=== PATIENT | female | born 1985 | race Caucasian/White ===

== ENCOUNTER 2017-01-03 11:32 | Emergency (ER) | payer SELFPAY ==
[2017-01-03 12:05] VITALS: BP 114/70
--- NOTE | 2017-01-03 12:53 | UC ---
Throat Pain/Nasal Ha HPI - HPI Summary HPI Summary: complaint of left ear feeling plugged or has fluid in it started to bother her for approx 3 days can't hear well out of left ear nasal congestion for over 10 days sinus pressure and is increasing in her face denies fever and chills denies ear pain has a rash on her skin but she is making an appointment with dermatology - History of Current Complaint Chief Complaint: UCEar Stated Complaint: CLOGGED EAR Time Seen by Provider: 01/03/17 12:45 Hx Obtained From: Patient Hx Last Menstrual Period: 12/12/16 - Allergies/Home Medications Allergies/Adverse Reactions: Allergies Allergy/AdvReac Type Severity Reaction Status Date / Time Latex Allergy Unknown Rash Verified 08/05/16 10:36 Benzoyl Peroxide Allergy Itching Verified 08/05/16 10:36 PMH/Surg Hx/FS Hx/Imm Hx Previously Healthy: Yes Endocrine History Of: Denies: Diabetes, Thyroid Disease Cardiovascular History Of: Reports: Cardiac Disorders - benign murmur Denies: Hypertension Respiratory History Of: Reports: Bronchitis Denies: COPD, Asthma GI/ History Of: Denies: Ulcer Psychological History Of: Reports: Anxiety, Depression - Surgical History Surgical History: Yes Surgery Procedure, Year, and Place: ; wisdom teeth; hx abnormal pap smears - Family History Known Family History: Positive: Hypertension Negative: Cardiac Disease, Diabetes - Social History Occupation: Employed Full-time Lives: With Family Alcohol Use: None Substance Use Type: None Substance Use Comment - Amount & Last Used: states quit 3 weeks ago Smoking Status (MU): Former Smoker Type: Cigarettes Have You Smoked in the Last Year: No When Did the Patient Quit Smoking/Using Tobacco: Oct 2014 - Immunization History Most Recent Influenza Vaccination: Not the Season Most Recent Tetanus Shot: 03/21/16 Most Recent Pneumonia Vaccination: n/a Review of Systems Constitutional: Negative Skin: Negative Eyes: Negative ENT: Nasal Discharge Respiratory: Cough Cardiovascular: Negative Gastrointestinal: Negative Genitourinary: Negative Motor: Negative Neurovascular: Negative Musculoskeletal: Negative Neurological: Negative Psychological: Negative All Other Systems Reviewed And Are Negative: Yes Physical Exam Triage Information Reviewed: Yes Appearance: No Pain Distress, Well-Nourished Vital Signs: Initial Vital Signs Temp 97.7 F 01/03/17 11:56 Pulse 72 01/03/17 11:56 Resp 18 01/03/17 11:56 BP 114/70 01/03/17 11:56 Pulse Ox 99 01/03/17 11:56 Vital Signs Reviewed: Yes Eyes: Positive: Conjunctiva Clear ENT: Positive: Nasal congestion, Nasal drainage, TMs normal - right, Other: - unable to visulaize TM d/t cerumen impaction maxillary sinus tenderness Neck: Positive: No Lymphadenopathy Respiratory: Positive: Lungs clear, Normal breath sounds, No respiratory distress, No accessory muscle use Cardiovascular: Positive: RRR, No Murmur Musculoskeletal Exam: Normal Neurological Exam: Normal Psychological Exam: Normal Skin Exam: Normal Throat Pain/Nasal Course/Dx - Differential Dx/Diagnosis Differential Diagnosis/HQI/PQRI: Sinusitis, URI, Other - cerumen impaction Provider Diagnoses: left ear cerumen impaction. sinusitis Discharge - Discharge Plan Condition: Stable Disposition: HOME Patient Education Materials: Cerumen Impaction (ED), Sinusitis (ED) Referrals: No Primary Care Phys,NOPCP [Primary Care Provider] - [facility] [place] [facility] [Outside] Additional Instructions: SINUSITIS What is Sinusitis? Sinusitis is inflammation or infection of the lining of the sinuses behind the bones in your cheeks or forehead. Sinusitis may occur following a common cold, flu, or other infection; allergies; a tooth infection that spreads to the sinuses; swimming in contaminated water; pressure changes in airplanes at high altitudes; violent sneezing or nose blowing or smoking or breathing other peoples smoke. Symptoms Might Include: Nasal Congestion Sneezing Watery eyes, eye irritation, or eye itching Headaches Pressure in the cheeks Wheezing Trouble smelling Sore throat and coughing may occur Treatment Recommendations: Take medicines as prescribed until completely gone. Drink plenty of fluids. Use saline nose spray to thin the mucous and help the sinuses drain. Use a vaporizer or humidifier. Apply warm compresses to the face or forehead several times a day for 10 to 20 minutes. Call Your Doctor or Return Here IF: Your pain increases during treatment. You develop a high temperature. You develop unusual swelling around the eyes. You have difficulty with your vision. You develop a severe headache, earache, or toothache. You develop increased fever or fever that does not respond to medication such as Tylenol?. You have difficulty breathing or catching your breath. You begin to have any other new symptoms that worry you.
== END 2017-01-03 13:21 | disposition home or self-care (01) ==
LOC: UCEAST 11:32
DX: H61.22 Impacted cerumen, left ear (principal); J32.9 Chronic sinusitis, unspecified; R01.0 Benign and innocent cardiac murmurs; F41.9 Anxiety disorder, unspecified; F32.9 Major depressive disorder, single episode, unspecified; Z91.040 Latex allergy status; Z87.09 Personal history of other diseases of the respiratory system; Z87.891 Personal history of nicotine dependence
CPT/HCPCS: 99213; G0463

== ENCOUNTER 2017-07-25 21:18 | Emergency (ER) | payer OTHER ==
[2017-07-25 21:27] VITALS: BP 112/63
--- NOTE | 2017-07-25 21:48 | UC ---
Respiratory Complaint HPI - HPI Summary HPI Summary: 32 year old female presents with complains of cough, fever, chill and sore throat. - History of Current Complaint Chief Complaint: UCSkin Stated Complaint: COUGH,COLD,RASH Time Seen by Provider: 07/25/17 21:43 Hx Obtained From: Patient Hx Last Menstrual Period: 1 WEEK AGO Onset/Duration: Sudden Onset Severity Initially: Moderate Severity Currently: Moderate Pain Scale Used: 0-10 Numeric - 5 Character: Cough: Nonproductive Associated Signs And Symptoms: Positive: Wheezing - Allergies/Home Medications Allergies/Adverse Reactions: Allergies Allergy/AdvReac Type Severity Reaction Status Date / Time Latex Allergy Unknown Rash Verified 07/25/17 21:27 Benzoyl Peroxide Allergy Itching Verified 07/25/17 21:27 Home Medications: Home Medications Cetirizine* [ZyrTEC 10 MG TAB*] 10 mg PO ONCE PRN 07/25/17 [History Confirmed ] Hydrocortisone 1% CREAM* [Hytone Cream 1%*] 1 applic TOPICAL PRN 07/25/17 [ History] Phenylephrine-Chlorpheniramine [Sara-[place] Plus Cold & 5-2-10-325 mg] 1 cap PO PRN 07/25/17 [History] PMH/Surg Hx/FS Hx/Imm Hx Previously Healthy: Yes - Surgical History Surgical History: Yes Surgery Procedure, Year, and Place: ; wisdom teeth; hx abnormal pap smears - Family History Known Family History: Positive: Hypertension Negative: Cardiac Disease, Diabetes - Social History Alcohol Use: None Substance Use Type: None Substance Use Comment - Amount & Last Used: states quit 3 weeks ago Smoking Status (MU): Former Smoker Type: Cigarettes Have You Smoked in the Last Year: No When Did the Patient Quit Smoking/Using Tobacco: Oct 2014 - Immunization History Most Recent Influenza Vaccination: Not the 2015/2015 Season Most Recent Tetanus Shot: 03/21/16 Most Recent Pneumonia Vaccination: n/a Review of Systems Constitutional: Negative Skin: Negative Eyes: Negative ENT: Sore Throat, Ear Ache, Nasal Discharge, Sinus Congestion, Sinus Pain/ Tenderness Respiratory: Shortness Of Breath, Cough Cardiovascular: Negative Gastrointestinal: Negative Genitourinary: Negative Motor: Negative Neurovascular: Negative Musculoskeletal: Negative Neurological: Negative Psychological: Negative All Other Systems Reviewed And Are Negative: Yes Physical Exam Triage Information Reviewed: Yes Appearance: Well-Appearing Vital Signs: Initial Vital Signs Temp 36.6 C 07/25/17 21:22 Pulse 85 07/25/17 21:22 Resp 16 07/25/17 21:22 BP 112/63 07/25/17 21:22 Pulse Ox 97 07/25/17 21:22 Eye Exam: Normal ENT: Positive: Pharyngeal erythema, Nasal congestion, Nasal drainage Dental Exam: Normal Neck exam: Normal Neck: Positive: 1 Respiratory Exam: Normal Cardiovascular Exam: Normal Abdominal Exam: Normal Musculoskeletal Exam: Normal Neurological Exam: Normal Psychological Exam: Normal Skin Exam: Normal UC Diagnostic Evaluation - Laboratory O2 Sat by Pulse Oximetry: 97 Respiratory Course/Dx - Differential Dx/Diagnosis Provider Diagnoses: cough. chest congestion. cough sore throat Discharge - Discharge Plan Condition: Stable Disposition: HOME Prescriptions: Albuterol HFA INHALER* [Ventolin HFA Inhaler*] 1 puff INH Q6H PRN #1 mdi PRN Reason: Wheezing Fluticasone NASAL * [Flonase *] 2 spray BOTH NARES DAILY #1 spray LoraTADine TAB(NF) [Claritin 10 MG TAB(NF)] 10 mg PO DAILY #30 tab Methylprednisolone [Medrol Dosepak 4 MG*] 4 mg PO .SEE MAYTE INSTRUCTION #21 tab Promethazine-Dm [Promethazine/Dextromethor 6.25-15 mg/5Ml] 1 teasp PO Q6H PRN # 120 ml PRN Reason: Cough Triamcinolone 0.1% CREAM (NF) [Kenalog 0.1% Cream (NF)] 1 applic TOPICAL TID PRN #90 gm PRN Reason: Itching Patient Education Materials: Allergic Rhinitis (ED) Referrals: No Primary Care Phys,NOPCP [Primary Care Provider] -
[2017-07-25] MEDS ORDERED: predniSONE TAB* 20 MG PO ONE (21:52)
[2017-07-25] MEDS ORDERED: Hydrocortisone 1% CREAM* 30 GM TUBE TOPICAL ONE (21:53)
[2017-07-25] MEDS ORDERED: hydrOXYzine HCL TAB* 25 MG PO ONE (21:54)
== END 2017-07-25 22:23 | disposition home or self-care (01) ==
LOC: UCEAST 21:18
DX: J02.9 Acute pharyngitis, unspecified (principal); Z87.891 Personal history of nicotine dependence; R05 Cough; R09.89 Other specified symptoms and signs involving the circulatory and respiratory systems
CPT/HCPCS: 99212; A9270-GY; G0463; J7512

== ENCOUNTER 2017-09-18 18:51 | Emergency (ER) | payer OTHER ==
[2017-09-18 19:09] VITALS: BP 127/85
[2017-09-18] MEDS ORDERED: Aspirin Low Dose CHEW TAB* 81 MG PO ONE (19:24)
--- NOTE | 2017-09-18 19:33 | UC ---
Terry Canales Gabriel, scribed for Jordon Macedo MD on 09/18/17 at 1923 . Cardiac HPI - HPI Summary HPI Summary: This patient is a 32 year old F presenting to [facility] [place] [facility] accompanied by family with a chief complaint of CP since 2 hours ago. The patient rates the pain 8/10 in severity and radiating into her left breast and left upper arm. Patient reports pleuritic pain. Patient denies cough, fever, chills, trauma, and LE edema or pain. Pt reports that the pain began while she was swimming. She says she gets chest cramps occasionally that feel similar to this but it never radiates down her arm. The pain hasnt resolved and is still currently present. - History of Current Complaint Chief Complaint: UCChestPain Stated Complaint: CHEST PAIN Time Seen by Provider: 09/18/17 19:06 Hx Obtained From: Patient Hx Last Menstrual Period: <1 WEEK Onset/Duration: Sudden Onset, Lasting Hours, Still Present Initial Severity: Moderate Current Severity: Moderate Pain Intensity: 8 Associated Signs & Symptoms: Positive: Negative - cough, fever, chills, trauma, and LE edema or pain - Allergy/Home Medications Allergies/Adverse Reactions: Allergies Allergy/AdvReac Type Severity Reaction Status Date / Time Latex Allergy Unknown Rash Verified 09/18/17 19:00 Benzoyl Peroxide Allergy Itching Verified 09/18/17 19:00 PMH/Surg Hx/FS Hx/Imm Hx Previously Healthy: No Respiratory History: Other Other Respiratory History: murmur - Surgical History Surgical History: Yes Surgery Procedure, Year, and Place: X2; wisdom teeth; hx abnormal pap smears - Family History Known Family History: Positive: Hypertension Negative: Cardiac Disease, Diabetes - Social History Occupation: Employed Full-time Lives: With Family Alcohol Use: None Substance Use Type: None Substance Use Comment - Amount & Last Used: states quit 3 weeks ago Smoking Status (MU): Former Smoker Type: Cigarettes Have You Smoked in the Last Year: No When Did the Patient Quit Smoking/Using Tobacco: Oct 2014 - Immunization History Most Recent Influenza Vaccination: Not the 2014/2015 Season Most Recent Tetanus Shot: 03/21/16 Most Recent Pneumonia Vaccination: n/a Review of Systems Respiratory: Other - pleuritic pain Cardiovascular: Chest Pain All Other Systems Reviewed And Are Negative: Yes Physical Exam Triage Information Reviewed: Yes Appearance: Well-Appearing, No Pain Distress Vital Signs: Initial Vital Signs Temp 97.3 F 09/18/17 18:53 Pulse 81 09/18/17 18:53 Resp 16 09/18/17 18:53 BP 127/85 09/18/17 18:53 Pulse Ox 99 09/18/17 18:53 Vital Signs Reviewed: Yes Neck: Positive: Nontender Respiratory: Positive: Lungs clear, Normal breath sounds, No respiratory distress Cardiovascular: Positive: RRR, No Murmur Abdomen Description: Positive: Nontender Musculoskeletal: Positive: No Edema, Other: - some reproduction of pain on ROM of the right arm, but minimal. Neurological: Positive: Alert, Muscle Tone Normal Skin Exam: Normal - Assessment/Plan Course Of Treatment: 32 yr old with chest pain, and left arm pain. Plan is to transfer to ER for further chest pain evaluation. She refuses ALS transport for her CP and signed out AMA with risk of delay in care, diagnosis, , disability. - Clinical Impression Provider Diagnoses: chest pain Discharge - Discharge Plan Condition: Good Disposition: AGAINST MEDICAL ADVICE Referrals: No Primary Care Phys,NOPCP [Primary Care Provider] - The documentation as recorded by the Terry hurd Gabriel accurately reflects the service I personally performed and the decisions made by , Jordon Macedo MD.
--- NOTE | 2017-09-18 19:49 | UC ---
ITerry Gabriel, scribed for Jordon Macedo MD on 09/18/17 at 1947 . Progress - Progress Note Progress Note: The follow is the patient's EKG results done at upon arrival. - EKG/XRAY/CT EKG: NSR - at 60 BPM Comments: no stemi, normal MN, QRS, QT The documentation as recorded by the scribeTerry Gabriel accurately reflects the service I personally performed and the decisions made by me, Jordon Macedo MD.
== END 2017-09-18 19:42 | disposition left against medical advice (07) ==
LOC: UCEAST 18:51
DX: R07.9 Chest pain, unspecified (principal); Z88.8 Allergy status to other drugs, medicaments and biological substances; Z87.891 Personal history of nicotine dependence; R01.1 Cardiac murmur, unspecified
CPT/HCPCS: 93005; 99212; A9270-GY; G0463

== ENCOUNTER 2017-09-28 09:16 | Emergency (ER) | payer MEDICAID, OTHER ==
[2017-09-28 10:36] VITALS: BP 119/63
--- NOTE | 2017-09-28 11:11 | UC ---
Respiratory Complaint HPI - HPI Summary HPI Summary: 32 yo female with 2 week hx of productive cough and wheeze sinus pressure and pain no fever/chills hx of bronchitis - History of Current Complaint Chief Complaint: UCRespiratory Stated Complaint: COUGH CONGESTION Time Seen by Provider: 09/28/17 11:05 Hx Obtained From: Patient Hx Last Menstrual Period: 09/15/17 Onset/Duration: Gradual Onset, Lasting Weeks Timing: Constant Severity Initially: Mild Severity Currently: Moderate Pain Intensity: 2 Pain Scale Used: 0-10 Numeric Character: Cough: Productive, Sputum Description: - yellow Associated Signs And Symptoms: Positive: Wheezing, Nasal Congestion, Sinus Discomfort Related History: Similar Episode/Dx as: - bronchitis - Allergies/Home Medications Allergies/Adverse Reactions: Allergies Allergy/AdvReac Type Severity Reaction Status Date / Time Latex Allergy Unknown Rash Verified 09/28/17 10:37 Benzoyl Peroxide Allergy Itching Verified 09/28/17 10:37 PMH/Surg Hx/FS Hx/Imm Hx Previously Healthy: Yes Respiratory History: Bronchitis - Surgical History Surgical History: Yes Surgery Procedure, Year, and Place: X2; wisdom teeth; hx abnormal pap smears - Family History Known Family History: Positive: Unknown - she is adopted - Social History Alcohol Use: None Substance Use Type: None Substance Use Comment - Amount & Last Used: states quit 3 weeks ago Smoking Status (MU): Former Smoker Type: Cigarettes Have You Smoked in the Last Year: No When Did the Patient Quit Smoking/Using Tobacco: Oct 2014 - Immunization History Most Recent Influenza Vaccination: Not the Season Most Recent Tetanus Shot: 03/21/16 Most Recent Pneumonia Vaccination: n/a Review of Systems Constitutional: Negative Skin: Negative Eyes: Negative ENT: Nasal Discharge, Sinus Congestion, Sinus Pain/Tenderness Respiratory: Cough Cardiovascular: Negative Gastrointestinal: Negative Genitourinary: Negative Motor: Negative Neurovascular: Negative Musculoskeletal: Negative Neurological: Negative Psychological: Negative Is Patient Immunocompromised?: No All Other Systems Reviewed And Are Negative: Yes Physical Exam Triage Information Reviewed: Yes Appearance: Well-Appearing, No Pain Distress, Well-Nourished Vital Signs: Initial Vital Signs Temp 97.7 F 09/28/17 10:30 Pulse 76 09/28/17 10:30 Resp 16 09/28/17 10:30 BP 119/63 09/28/17 10:30 Pulse Ox 99 09/28/17 10:30 Vital Signs Reviewed: Yes Eyes: Positive: Conjunctiva Clear ENT: Positive: Hearing grossly normal, Nasal congestion, Nasal drainage, Uvula midline. Negative: TMs normal, TM bulging, TM dull, TM red, Tonsillar swelling , Tonsillar exudate, Trismus, Muffled voice, Hoarse voice, Dental tenderness, Sinus tenderness Neck: Positive: Supple, Nontender, No Lymphadenopathy Respiratory: Positive: No respiratory distress, No accessory muscle use, Wheezing - with forced expiration Cardiovascular: Positive: RRR Musculoskeletal: Positive: ROM Intact, No Edema Neurological: Positive: Alert Psychological Exam: Normal Skin Exam: Normal UC Diagnostic Evaluation - Laboratory O2 Sat by Pulse Oximetry: 99 - normal/not hypoxic Respiratory Course/Dx - Differential Dx/Diagnosis Provider Diagnoses: acute bronchitis with bronchospasm Discharge - Discharge Plan Condition: Stable Disposition: HOME Prescriptions: Amoxicillin PO (*) [Amoxicillin 875 MG (*)] 875 mg PO BID #14 tab Fluconazole 150 MG (NF) [Diflucan 150 mg (NF)] 150 mg PO ONCE #1 tab Prednisone [Deltasone] 40 mg PO DAILY #10 tab Patient Education Materials: Acute Bronchitis (ED) Referrals: [facility] [place] [facility] [Outside] - If Needed (call this number for help in finding a MD) Additional Instructions: use inhaler with spacer as ordered recheck for new or worsening symptoms recheck in 5-7 days if not better
[2017-09-28] MEDS: Albuterol HFA INHALER* 8 gm MDI INH ONE (11:21)
== END 2017-09-28 11:17 | disposition home or self-care (01) ==
LOC: UCEAST 09:16
DX: J20.9 Acute bronchitis, unspecified (principal); Z87.891 Personal history of nicotine dependence
CPT/HCPCS: 99213; A9270-GY; G0463

== ENCOUNTER 2017-11-29 21:16 | Emergency (ER) | payer OTHER ==
[2017-11-29 21:28] VITALS: BP 108/67
[2017-11-29] MEDS ORDERED: Azithromycin TAB* 250 MG PO ONE (21:38)
[2017-11-29] MEDS ORDERED: guaiFENesin/CODIEN 100MG-10MG* 5 ML UDC PO ONE (21:38)
[2017-11-29] MEDS ORDERED: Albuterol HFA INHALER* 8 gm MDI INH ONE ×2 (21:43→21:44)
--- NOTE | 2017-11-29 21:46 | UC ---
Respiratory Complaint HPI - HPI Summary HPI Summary: 2-3 WEEKS OF COUGH, CONGESTION, CHEST TIGHTNESS, ST, FATIGUE. EARS FEELS FULL. DENIES ANY FEVER, N/V/D. HAS BEEN USING ALBUTEROL AND FLONASE WITH SOME RELIEF BUT HAS RUN OUT. - History of Current Complaint Chief Complaint: UCRespiratory Stated Complaint: COUGH Time Seen by Provider: 11/29/17 21:32 Hx Obtained From: Patient Hx Last Menstrual Period: BEGINNING NOVEMBER Onset/Duration: Gradual Onset, Lasting Weeks, Still Present Timing: Constant Severity Initially: Moderate Severity Currently: Moderate Pain Intensity: 4 Pain Scale Used: 0-10 Numeric Character: Cough: Nonproductive Aggravating Factors: Nothing Alleviating Factors: Bronchodilator Associated Signs And Symptoms: Positive: Pleuritic Chest Pain, URI, Nasal Congestion. Negative: Dyspnea, Fever, Chills, Wheezing, Dizziness - Allergies/Home Medications Allergies/Adverse Reactions: Allergies Allergy/AdvReac Type Severity Reaction Status Date / Time latex Allergy Severe Rash Verified 11/29/17 21:29 BENZOL PEROXIDE Allergy Severe Itching Uncoded 11/29/17 21:29 PMH/Surg Hx/FS Hx/Imm Hx Previously Healthy: Yes - Surgical History Surgical History: Yes Surgery Procedure, Year, and Place: X2; wisdom teeth; hx abnormal pap smears - Family History Known Family History: Positive: Unknown - she is adopted Negative: Cardiac Disease, Diabetes - Social History Alcohol Use: None Substance Use Type: None Substance Use Comment - Amount & Last Used: states quit 3 weeks ago Smoking Status (MU): Former Smoker Type: Cigarettes Have You Smoked in the Last Year: No When Did the Patient Quit Smoking/Using Tobacco: Oct 2014 - Immunization History Most Recent Influenza Vaccination: Not the Season Most Recent Tetanus Shot: 03/21/16 Most Recent Pneumonia Vaccination: n/a Review of Systems Constitutional: Fatigue ENT: Sore Throat, Ear Ache, Nasal Discharge Respiratory: Cough Cardiovascular: Chest Pain Gastrointestinal: Negative All Other Systems Reviewed And Are Negative: Yes Physical Exam Triage Information Reviewed: Yes Appearance: Well-Appearing, No Pain Distress, Well-Nourished Vital Signs: Initial Vital Signs Temp 97.6 F 11/29/17 21:24 Pulse 82 11/29/17 21:24 Resp 16 11/29/17 21:24 BP 108/67 11/29/17 21:24 Pulse Ox 100 11/29/17 21:24 Vital Signs Reviewed: Yes Eyes: Positive: Conjunctiva Clear ENT: Positive: Hearing grossly normal, Pharynx normal, TMs normal, Hoarse voice Neck: Positive: Supple, Nontender, No Lymphadenopathy Respiratory Exam: Normal Cardiovascular Exam: Normal Abdomen Description: Positive: Soft Musculoskeletal: Positive: No Edema Neurological: Positive: Alert Psychological: Positive: Age Appropriate Behavior Skin: Negative: rashes UC Diagnostic Evaluation - Laboratory O2 Sat by Pulse Oximetry: 100 Respiratory Course/Dx - Differential Dx/Diagnosis Provider Diagnoses: ACUTE BRONCHITIS Discharge - Discharge Plan Condition: Stable Disposition: HOME Prescriptions: Albuterol HFA INHALER* [Ventolin HFA Inhaler*] 2 puff INH Q4H PRN #1 mdi PRN Reason: Shortness Of Breath Azithromycin 500 mg PO DAILY #4 tab Codeine Phosphate/Guaifenesin [Codeine-Guaifen 10-100 mg/5 ml] 5 - 10 ml PO Q6H PRN #150 ml MDD 40ML PRN Reason: Cough Fluticasone NASAL SPRAY 50MCG* [Flonase NASAL SPRAY 50MCG*] 2 spray BOTH NARES DAILY #1 btl predniSONE TAB* [Deltasone TAB*] 40 mg PO DAILY #10 tab Patient Education Materials: Acute Bronchitis (ED) Referrals: [facility] [Provider Group] - If Needed Additional Instructions: YOUR SYMPTOMS MAY BE VIRALLY MEDIATED BUT GIVEN THE LENGTH OF TIME YOU HAVE BEEN ILL WE WILL COVER YOU WITH ANTIBIOTICS. IF YOU START THE MEDICINE BE SURE TO TAKE IT FOR THE FULL COURSE. REST, HYDRATE, OTC MEDS NEEDED. WILL ALSO TREAT WITH PREDNISONE TO HELP WITH AIRWAY INFLAMMATION AND COUGH MEDICINE. REFILLS OF ALBUTEROL AND FLONASE SENT IN. SEEK FOLLOW-UP WITH YOUR PCP IF YOU ARE NOT IMPROVING OVER THE NEXT 1-2 WEEKS.
== END 2017-11-29 21:49 | disposition home or self-care (01) ==
LOC: UCEAST 21:16
DX: J20.9 Acute bronchitis, unspecified (principal); Z87.891 Personal history of nicotine dependence
CPT/HCPCS: 99213; A9270-GY; G0463

== ENCOUNTER 2017-12-06 13:20 | Emergency (ER) | payer OTHER ==
[2017-12-06 13:39] VITALS: BP 122/72
--- NOTE | 2017-12-06 13:42 | UC ---
Lower Extremity/Ankle HPI - HPI Summary HPI Summary: Pt presents with left leg injury s/p fall earlier today. She tells me that she was walking down her porch steps when one of the steps gave out and she fell forward. She was carrying a baby at the time - therefore she landed awkwardly on he left leg/ankle to protect the baby. Did not hit her head. Denies hx of injury or LE issues. She took 600mg ibuprofen with good relief. She is able to bear weight without assistance, but does have pain. - History of Current Complaint Chief Complaint: UCLowerExtremity Stated Complaint: LOWER LEG INJURY Time Seen by Provider: 12/06/17 13:41 Hx Obtained From: Patient Hx Last Menstrual Period: one month ago Onset/Duration: Sudden Onset Severity Initially: Moderate Severity Currently: Moderate Pain Intensity: 7 Pain Scale Used: 0-10 Numeric Aggravating Factor(s): Standing, Ambulation Alleviating Factor(s): Rest Able to Bear Weight: Yes - Allergies/Home Medications Allergies/Adverse Reactions: Allergies Allergy/AdvReac Type Severity Reaction Status Date / Time latex Allergy Severe Rash Verified 12/06/17 13:31 BENZOL PEROXIDE Allergy Severe Itching Uncoded 12/06/17 13:31 PMH/Surg Hx/FS Hx/Imm Hx Previously Healthy: Yes Respiratory History: Asthma - Surgical History Surgical History: Yes Surgery Procedure, Year, and Place: X2; wisdom teeth; hx abnormal pap smears - Family History Known Family History: Positive: Unknown - she is adopted Negative: Cardiac Disease, Diabetes - Social History Lives: With Family Alcohol Use: None Substance Use Type: None Substance Use Comment - Amount & Last Used: states quit 3 weeks ago Smoking Status (MU): Former Smoker Type: Cigarettes Have You Smoked in the Last Year: No When Did the Patient Quit Smoking/Using Tobacco: Oct 2014 - Immunization History Most Recent Influenza Vaccination: Not the 2014/2015 Season Most Recent Tetanus Shot: 03/21/16 Most Recent Pneumonia Vaccination: n/a Review of Systems Constitutional: Negative Skin: Negative Respiratory: Negative Cardiovascular: Negative Neurovascular: Negative Musculoskeletal: Other: - Left leg pain Neurological: Negative Psychological: Negative All Other Systems Reviewed And Are Negative: Yes Physical Exam Triage Information Reviewed: Yes Appearance: Well-Appearing, No Pain Distress, Well-Nourished Vital Signs: Initial Vital Signs Temp 97.8 F 12/06/17 13:34 Pulse 89 12/06/17 13:34 Resp 16 12/06/17 13:34 BP 122/72 12/06/17 13:34 Pulse Ox 98 12/06/17 13:34 Vital Signs Reviewed: Yes Neck: Positive: Supple, Nontender Respiratory: Positive: Lungs clear, Normal breath sounds, No respiratory distress Cardiovascular: Positive: RRR, No Murmur, Pulses Normal Musculoskeletal: Positive: Strength Intact - B/L LEs, ROM Intact - B/L LEs, No Edema, Other: - TTP over medial and lateral left lower leg - worse over anteromedial leg at location of abrasion and mild ecchymosis. FROM ankle and NTTP. Neurological: Positive: Alert, Other: - Sensations intact left foot and all toes Psychological: Positive: Age Appropriate Behavior Skin: Positive: Other - Mild ecchymosis anteromedial left lower leg. Lower Extremity Course/Dx - Course Course Of Treatment: XR: IMPRESSION: NEGATIVE EXAMINATION. Suspect contusion. LILI wrap and crutches. RICE therapy. Ibuprofen 600mg prn 6-8hrs - Differential Dx/Diagnosis Provider Diagnoses: Left lower leg contusion s/p fall Discharge - Discharge Plan Condition: Stable Disposition: HOME Patient Education Materials: Foot Contusion (ED) Forms: *Work Release Referrals: No Primary Care Phys,NOPCP [Primary Care Provider] - Additional Instructions: If you develop a fever, shortness of breath, chest pain, new or worsening symptoms - please call your PCP or go to the ED. 1) Rest, Ice, and elevate your leg as much as possible over the next 24-48 hours 2) May take ibuprofen 600mg every 6-8 hours as needed for pain and swelling 3) If you symptoms worsen or persist - please schedule a follow up appointment with your PCP for further eval.
--- NOTE | 2017-12-06 14:21 | RAD ---
INDICATION: Pain. Fall. COMPARISON: None TECHNIQUE: AP, lateral, and oblique views were obtained. FINDINGS: The bony structures, joint spaces, and soft tissues are normal for age. IMPRESSION: NEGATIVE EXAMINATION.
--- NOTE | 2017-12-06 14:22 | RAD ---
INDICATION: Left lower extremity injury COMPARISON: None TECHNIQUE: AP and lateral views were obtained. FINDINGS: The bony structures, joint spaces, and soft tissues are normal for age. IMPRESSION: NEGATIVE EXAMINATION.
== END 2017-12-06 14:53 | disposition home or self-care (01) ==
LOC: UCEAST 13:20
DX: S80.12XA Contusion of left lower leg, initial encounter (principal); W10.9XXA Fall (on) (from) unspecified stairs and steps, initial encounter; Y93.9 Activity, unspecified; Y92.9 Unspecified place or not applicable; Z88.8 Allergy status to other drugs, medicaments and biological substances; Z91.040 Latex allergy status; Z87.891 Personal history of nicotine dependence
CPT/HCPCS: 99212; G0463

== ENCOUNTER 2018-11-19 18:57 | Emergency (ER) | payer OTHER ==
[2018-11-19 19:09] VITALS: BP 126/82
--- NOTE | 2018-11-19 19:14 | UC ---
Hand/Wrist HPI - HPI Summary HPI Summary: 33 y/o female presents to the urgent care c/o left index pain and swelling with an abrasion s/p crushing her finger between 2 pieces of wood around 1800 today. Pt also c/o chest congestion with productive cough and green sputum for the past 2 weeks. Symptoms started with a common cold and now have worsen. She developed a mild wheezing last night. She used the albuterol inhaler and it resolved today. The cough have been keeping her up. Her family has similar symptoms. Pt states last year she had similar symptoms and was Rx Z-mayte and the inhaler w/ Flonase nasal spray and symptoms resolved. Pain in her finger is 6/10 , but she took Ibuprofen PO 600mg an hr ago and applied ice which decrease the severe pain. She can move finger with mild pain and swelling around the abrasion. Pt denies numbness or tingling sensation over the left index finger of hand, SOB, chest pain, abdominal pain, N/V/D, BOWER. - History Of Current Complaint Chief Complaint: UCUpperExtremity Stated Complaint: FINGER INJURY, AND COUGH Time Seen by Provider: 11/19/18 19:12 Hx Obtained From: Patient Hx Last Menstrual Period: [id number] ?: No - Pt declined pregnacy test Onset/Duration: Sudden Onset, Lasting Hours - 1.5hrs ago, Still Present Severity Initially: Moderate Severity Currently: Mild Pain Intensity: 2 Pain Scale Used: 0-10 Numeric Character Of Pain: Dull, Throbbing Aggravating Factor(s): Movement, Lifting, Flexion Alleviating Factor(s): Rest, Ice, OTC Meds - Pt took ibuprofen PO 600mg about 1hr ago Associated Signs And Symptoms: Positive: Swelling - mild, Bruising, Other - discrete break in the skin on dorsal side o Related History: Dominant Hand Right - Allergies/Home Medications Allergies/Adverse Reactions: Allergies Allergy/AdvReac Type Severity Reaction Status Date / Time latex Allergy Severe Rash Verified 11/19/18 19:10 BENZOL PEROXIDE Allergy Severe Itching Uncoded 11/19/18 19:10 Home Medications: Home Medications Ibuprofen TAB* [Motrin TAB* 600 MG] 600 mg PO Q6H PRN 11/19/18 [History Confirmed 11/19/18] Magnesium Oxide/Magnesium [Magnesium 300 mg Capsule] 300 mg PO DAILY 11/19/18 [ History Confirmed 11/19/18] PMH/Surg Hx/FS Hx/Imm Hx Previously Healthy: Yes Endocrine History: Dyslipidemia - diet control Other Cardiovascular History: Heart Murmur - Surgical History Surgical History: Yes Surgery Procedure, Year, and Place: X2; wisdom teeth; hx abnormal pap smears - Family History Known Family History: Positive: Unknown - she is adopted Negative: Cardiac Disease, Diabetes - Social History Occupation: Employed Full-time Lives: With Family Alcohol Use: None Substance Use Type: None Substance Use Comment - Amount & Last Used: states quit 3 weeks ago Smoking Status (MU): Former Smoker Type: Cigarettes Have You Smoked in the Last Year: No When Did the Patient Quit Smoking/Using Tobacco: Oct 2014 - Immunization History Most Recent Influenza Vaccination: Not the Season Most Recent Tetanus Shot: 03/21/16 Most Recent Pneumonia Vaccination: n/a Review of Systems All Other Systems Reviewed And Are Negative: Yes Constitutional: Positive: Negative Skin: Positive: Negative Eyes: Positive: Negative ENT: Positive: Nasal Discharge - yellowish, Sinus Congestion, Sinus Pain/ Tenderness Respiratory: Positive: Cough - productive with yellowish phlegm, Other - wheezing last night, but not today Cardiovascular: Positive: Negative Gastrointestinal: Positive: Negative Genitourinary: Positive: Negative Motor: Positive: Negative Neurovascular: Positive: Negative Musculoskeletal: Positive: Decreased ROM - left index finger s/p injury, Other: - left index pain w/ mild swelling s/p injury Neurological: Positive: Negative Psychological: Positive: Negative Is Patient Immunocompromised?: No Physical Exam - Summary Physical Exam Summary: Vital Signs Reviewed: Yes General: well developed, well nourished female sitting in the examining table w/ o any apparent distress Eyes: Positive: Conjunctiva Clear - PERRLA, EOMI, fundi grossly normal ENT: Positive: Normal ENT inspection, Hearing grossly normal, Pharynx normal, Nasal congestion - edematous and erythematous nasal mucosa, Nasal drainage - yellowish drainage, TMs normal. Negative: Tonsillar swelling, Tonsillar exudate Neck: Positive: Supple, Nontender, No Lymphadenopathy Respiratory: no orthopnea or dyspnea. Able to speak in full sentences, no retractions or accessory muscle use, no tripod position, stridor, or head bobbing. Positive breath sounds bilaterally. B/L posterior lungs w/ mild scattered rhonchi, no wheezing, no crackles or rales. Cardiovascular: Positive: RRR, No Murmur, Pulses Normal, Brisk Capillary Refill Abdomen Description: Positive: Nontender, No Organomegaly, Soft. Negative: CVA Tenderness (R), CVA Tenderness (L) Bowel Sounds: Positive: Present Musculoskeletal: Positive: Strength Intact, No Edema, Left Hand/Fingers: the L hand is without obvious asymmetry or deformity when compared to the R hand. mild swelling around ventral side of #2 middle phalanx w/ a discrete break in the skin, non bleeding. NO bony deformity. Normal cascade of fingers. Normal flexion and extension of fingers, except for #2 phalanx due to pain. FDS and FDP intact against resistance. No focal fullness, throbbing pain, swelling of finger tip. Pulses and capillary refill WNL, positive reflexes and sensation intact Musculoskeletal: Positive: Strength Intact, ROM Intact, No Edema Neurological Exam: Normal Psychological Exam: Normal Skin Exam: Normal Triage Information Reviewed: Yes Vital Signs: Initial Vital Signs Temp 98.4 F 11/19/18 19:03 Pulse 70 11/19/18 19:03 Resp 16 11/19/18 19:03 BP 126/82 11/19/18 19:03 Pulse Ox 100 11/19/18 19:03 Hand/Wrist Course/Dx - Course Course Of Treatment: 33 y/o female presents to the urgent care c/o left index pain and swelling with an abrasion s/p crushing her finger between 2 pieces of wood around 1800 today. Pt also c/o chest congestion with productive cough and green sputum for the past 2 weeks. Symptoms started with a common cold and now have worsen. She developed a mild wheezing last night. She used the albuterol inhaler and it resolved today. The cough have been keeping her up. Her family has similar symptoms. Pt states last year she had similar symptoms and was Rx Z- mayte and the inhaler w/ Flonase nasal spray and symptoms resolved. Pain in her finger is 6/10, but she took Ibuprofen PO 600mg an hr ago and applied ice which decrease the severe pain. She can move finger with mild pain and swelling around the abrasion. Pt denies numbness or tingling sensation over the left index finger of hand, SOB, chest pain, abdominal pain, N/V/D, BOWER. Hx obtained. Pt w/ scattered B/L posterior lungs w/ rhonchi, no wheezes and mild swelling around ventral side of #2 middle phalanx w/ a discrete break in the skin, non bleeding. NO bony deformity on examination. O2Sat:100%. Chest X-ray ordered: Impression:No acute cardiopulmonary disease observed. Left index finger X-ray ordered: Impression: No acute osseous injury observed. However, final radiology reports will be done tomorrow. If any abnormality Pt will be notified of any abnormality. Discrete abrasion irrigated w/ sterile water and iodine swabs, Bacitracin applied over and sterile dressing applied over. Patient prescribed Z -mayte PO, Prednisone taper dose, Albuterol neb. Pt given Aerochamber. Pt with possible left index sprain. Finger immobilzed with a finger splint by me. Neurovascular intact after splint placement. Pt advised to continue taking Ibuprofen PO to alleviate pain and swelling and if not improvement of symptoms to f/u with Orthopedic DR Mckeon for further management. D/C instructions explained. Patient understood and agree w/ plan of care. Pt left clinic hemodynamically stable , A&OX3 - Differential Dx/Diagnosis Differential Diagnosis/HQI/PQRI: Contusion, Dislocation, Fracture, Sprain, Strain, Tendonitis Provider Diagnosis: Superficial injury of left index finger, Acute bronchitis, Sprain of left index finger Discharge - Sign-Out/Discharge Documenting (check all that apply): Patient Departure - D/C home All imaging exams completed and their final reports reviewed: No - Discharge Plan Condition: Stable Disposition: HOME Prescriptions: Albuterol HFA INHALER* [Ventolin HFA Inhaler*] 2 puff INH Q4H PRN #1 mdi PRN Reason: Shortness Of Breath Azithromyxin MAYTE (NF) [Z-Mayte (Zithromax) 250 mg tabs #6] 2 tab PO .TODAY, THEN 1 DAILY #6 tab Bacitracin OINTMENT* 1 applic TOPICAL BID #1 tube Fluticasone NASAL SPRAY 50MCG* [Flonase NASAL SPRAY 50MCG*] 2 spray BOTH NARES DAILY #1 btl predniSONE TAB* [Deltasone 20 MG TAB*] 20 mg PO DAILY #11 tab Patient Education Materials: Acute Bronchitis (ED), Finger Sprain (ED) Referrals: [facility] [place] [facility] REFERRAL [Outside] - 3 Days Zakia Mckeon MD [Medical Doctor] - 1 Week Additional Instructions: 1-Please continue taking Ibuprofen PO q6-8hrs after meals to alleviate pain and swelling. apply Bacitracin ointment around wound as directed to prevent infection. Keep wound clean and dry. 2-Please apply ice, keep your finger immobilized with the splint. Avoid heavy lifting or strenuous exercise, keep it elevated. 3- Please f/u with Orthopedic Dr Mckeon or your PCP in 1 week is not improvement of symptoms for further evaluation and treatment. 4-Please take full course of Z-mayte antibiotic to avoid resistance. 5- Take Prednisone PO taper dose as directed and use the albuterol inhaler to alleviate cough and wheezing. Increase fluid intake, rest and eat well. 6- If symptoms do not improve or worsen or your develop SOB with fever and severe wheezing please go immediately to the ER further evaluation and treatment. 7- F/u with your PCP in 3 days if not improvement of symptoms for further management on your Asthma - Billing Disposition and Condition Condition: STABLE Disposition: Home
--- NOTE | 2018-11-22 21:17 | UC ---
- EKG/XRAY/CT Xray Comments: wet read correct Course/Dx - Diagnoses Provider Diagnoses: Superficial injury of left index finger, Acute bronchitis, Sprain of left index finger Discharge - Sign-Out/Discharge Documenting (check all that apply): Post-Discharge Follow Up All imaging exams completed and their final reports reviewed: Yes - Discharge Plan Condition: Stable Disposition: HOME Prescriptions: Albuterol HFA INHALER* [Ventolin HFA Inhaler*] 2 puff INH Q4H PRN #1 mdi PRN Reason: Shortness Of Breath Azithromyxin MAYTE (NF) [Z-Mayte (Zithromax) 250 mg tabs #6] 2 tab PO .TODAY, THEN 1 DAILY #6 tab Bacitracin OINTMENT* 1 applic TOPICAL BID #1 tube Fluticasone NASAL SPRAY 50MCG* [Flonase NASAL SPRAY 50MCG*] 2 spray BOTH NARES DAILY #1 btl predniSONE TAB* [Deltasone 20 MG TAB*] 20 mg PO DAILY #11 tab Patient Education Materials: Acute Bronchitis (ED), Finger Sprain (ED) Referrals: [facility] [place] [facility] REFERRAL [Outside] - 3 Days Zakia Mckeon MD [Medical Doctor] - 1 Week Additional Instructions: 1-Please continue taking Ibuprofen PO q6-8hrs after meals to alleviate pain and swelling. apply Bacitracin ointment around wound as directed to prevent infection. Keep wound clean and dry. 2-Please apply ice, keep your finger immobilized with the splint. Avoid heavy lifting or strenuous exercise, keep it elevated. 3- Please f/u with Orthopedic Dr Mckeon or your PCP in 1 week is not improvement of symptoms for further evaluation and treatment. 4-Please take full course of Z-mayte antibiotic to avoid resistance. 5- Take Prednisone PO taper dose as directed and use the albuterol inhaler to alleviate cough and wheezing. Increase fluid intake, rest and eat well. 6- If symptoms do not improve or worsen or your develop SOB with fever and severe wheezing please go immediately to the ER further evaluation and treatment. 7- F/u with your PCP in 3 days if not improvement of symptoms for further management on your Asthma - Billing Disposition and Condition Condition: STABLE Disposition: Home
== END 2018-11-19 20:25 | disposition home or self-care (01) ==
LOC: UCEAST 18:57
DX: S60.411A Abrasion of left index finger, initial encounter (principal); S63.611A Unspecified sprain of left index finger, initial encounter; R05 Cough; R06.2 Wheezing; R09.89 Other specified symptoms and signs involving the circulatory and respiratory systems; Z87.891 Personal history of nicotine dependence; Z91.040 Latex allergy status; Z88.8 Allergy status to other drugs, medicaments and biological substances; W23.0XXA Caught, crushed, jammed, or pinched between moving objects, initial encounter; Y92.9 Unspecified place or not applicable
CPT/HCPCS: 71046; 73140; 99212; G0463